=== PATIENT | male | born 1990 | race African-American/Black ===

== ENCOUNTER 2017-08-02 12:47 | Emergency (ER) | payer OTHER ==
[2017-08-02 13:00] VITALS: BP 116/84
[2017-08-02] MEDS ORDERED: NORCO 5/325 PO ONE (13:19)
--- NOTE | 2017-08-02 13:23 | Emergency Department Report ---
ED Lower Extremity HPI - General Chief Complaint: Extremity Injury, Lower Stated Complaint: FX TO LEG Time Seen by Provider: 08/02/17 13:09 Source: patient Mode of arrival: Ambulatory Limitations: No Limitations - History of Present Illness Initial Comments: 27-year-old male past medical history none presents with complaint of left lower leg pain. Patient states that yesterday while at work he had an accident. States he fell while handling heavy material. States that his leg bent awkwardly. Patient states that he felt immediate pain and a snap. Was taken to ED at [facility] where he was evaluated and treated. Patient sustained a distal fibular fracture. Patient states that he came to the ED here today because of pain and states that this occurred out of state and needs orthopedic follow-up in this region. Patient denies any new injuries. Patient has his left lower extremity in a splint and has crutches. Denies any paresthesias. MD Complaint: leg injury Onset/Timin -: days(s) Injury: Leg: Left Type of Injury: inversion Place: work Severity: moderate Severity scale (0 -10): 6 Improves With: NSAID, cold therapy, immobilization Worsens With: weight bearing, movement Context: fall Associated Symptoms: swelling, unable to bear weight - Related Data Allergies Allergy/AdvReac Type Severity Reaction Status Date / Time No Known Allergies Allergy Verified 08/02/17 12:57 ED Review of Systems ROS: Stated complaint: FX TO LEG Other details as noted in HPI Constitutional: denies: chills, fever Eyes: denies: eye pain, eye discharge, vision change ENT: denies: ear pain, throat pain Respiratory: denies: cough, shortness of breath, wheezing Cardiovascular: denies: chest pain, palpitations Endocrine: no symptoms reported Gastrointestinal: denies: abdominal pain, nausea, diarrhea Genitourinary: denies: urgency, dysuria Musculoskeletal: as per HPI. denies: back pain, joint swelling, arthralgia Skin: denies: rash, lesions Neurological: denies: headache, weakness, paresthesias Psychiatric: denies: anxiety, depression Hematological/Lymphatic: denies: easy bleeding, easy bruising ED Past Medical Hx - Past Medical History Previous Medical History?: No - Surgical History Past Surgical History?: No - Social History Smoking Status: Never Smoker Substance Use Type: None ED Physical Exam - General Limitations: No Limitations General appearance: alert, in no apparent distress - Head Head exam: Present: atraumatic, normocephalic - Eye Eye exam: Present: normal appearance, PERRL, EOMI - ENT ENT exam: Present: mucous membranes moist - Neck Neck exam: Present: normal inspection - Respiratory Respiratory exam: Present: normal lung sounds bilaterally. Absent: respiratory distress - Cardiovascular Cardiovascular Exam: Present: regular rate, normal rhythm. Absent: systolic murmur, diastolic murmur, rubs, gallop - GI/Abdominal GI/Abdominal exam: Present: soft, normal bowel sounds - Rectal Rectal exam: Present: deferred - Extremities Exam Extremities exam: Present: normal inspection - Expanded Lower Extremity Exam Left Neuro vascular tendon exam: Present: no vascular compromise (distal capillary refill intact all toes left foot) Gait: Positive: antalgic 1 - Left lower extremity in long posterior splint extending from back of the knee running posteriorly to toes - Back Exam Back exam: Present: normal inspection - Neurological Exam Neurological exam: Present: alert, oriented X3, CN II-XII intact - Psychiatric Psychiatric exam: Present: normal affect, normal mood - Skin Skin exam: Present: warm, dry, intact, normal color. Absent: rash ED Course Vital Signs 08/02/17 12:57 Temperature 98.2 F Pulse Rate 90 Respiratory 16 Rate Blood Pressure 116/84 O2 Sat by Pulse 97 Oximetry ED Lower Extremity MDM - Medical Decision Making A/P: Fibula fracture 1-minimally displaced on x-ray. I discussed this with on-call orthopedic surgeon Dr. Michel. Patient to follow-up in office this week 2-patient has prescription for hydrocodone and Motrin from previous medical facility 3-I referred patient to Dr. Michel's office for follow-up 4-distal capillary refill and blood flow intact on clinical exam left lower extremity. Critical care attestation.: If time is entered above; I have spent that time in minutes in the direct care of this critically ill patient, excluding procedure time. ED Disposition Clinical Impression: Left fibular fracture Qualifiers: Encounter type: initial encounter Fibula location: shaft Fracture type: closed Fracture morphology: other fracture Qualified Code(s): S82.492A - Other fracture of shaft of left fibula, initial encounter for closed fracture Disposition: TO HOME OR SELFCARE Is pt being admited?: No Does the pt Need Aspirin: No Condition: Stable Instructions: Leg Fracture (ED) Referrals: PRIMARY MD ADI [Primary Care Provider] - 3-5 Days ZAY MICHEL MD [Staff Physician] - 3-5 Days [facility] [Provider Group] - 3-5 Days Forms: Accompanied Note Time of Disposition: 14:21 Print Language: GUAMANIAN
--- NOTE | 2017-08-02 15:00 | XRay Report ---
FINAL REPORT PROCEDURE: XR TIBIA FIBULA 2V LT TECHNIQUE: Left tibia and fibula, AP and lateral views HISTORY: lateral leg pain left fibular break, in splint COMPARISON: No prior studies are available for comparison. FINDINGS: AP and lateral views are submitted through splint material.There is minimally displaced fracture through the distal fibula shaft. There is an osseous density measuring 8 millimeters at the tip of the medial malleolus, possibly related to prior fracture or unfused ossification center.. No significant displacement is seen. No prior studies are available for comparison. No bridging callus is identified, although there is limited evaluation of bony details due to splint material. IMPRESSION: Distal fibula fracture, without significant displacement. Prior medial malleolus fracture versus unfused ossification center
== END 2017-08-02 14:32 | disposition home or self-care (01) ==
LOC: EDBD 12:47 → ED 12:47
DX: S82.492A Other fracture of shaft of left fibula, initial encounter for closed fracture (principal); X58.XXXA Exposure to other specified factors, initial encounter; Y93.89 Activity, other specified; Y92.89 Other specified places as the place of occurrence of the external cause; Y99.8 Other external cause status

== ENCOUNTER 2019-10-20 16:26 | Emergency (ER) | payer SELFPAY ==
--- NOTE | 2019-10-20 17:19 | Event Note ---
ED Screening Note ED Screening Note: states that he jumped down from two feet had an inversion injury c./o right foot and ankle pain no numbness or weakness not bearing weight secondary to pain This initial assessment/diagnostic orders/clinical plan/treatment(s) is/are subject to change based on patients health status, clinical progression and re- assessment by fellow clinical providers in the ED. Further treatment and workup at subsequent clinical providers discretion. Patient/guardian urged not to elope from the ED as their condition may be serious if not clinically assessed and managed. Initial orders include: XR right foot and ankle
[2019-10-20 17:20] VITALS: BP 152/85
--- NOTE | 2019-10-20 17:59 | XRay Report ---
Right foot 3 views INDICATION: Right foot pain following injury IMPRESSION: No fracture or subluxation of the right foot identified. Signer Name: J Carlos Mandujano MD Signed: 10/20/2019 5:55 PM Workstation Name: [id number]
--- NOTE | 2019-10-20 17:59 | XRay Report ---
Right ankle 3 views INDICATION: Right ankle pain following injury IMPRESSION: No fracture or subluxation of the right ankle is identified. Moderate swelling along the lateral malleolus noted. Signer Name: J Carlos Mandujano MD Signed: 10/20/2019 5:55 PM Workstation Name: [id number]
[2019-10-20] MEDS ORDERED: HYDROcodone/ACETAMINOPHEN 5-325 MG TAB PO ONE (18:14)
--- NOTE | 2019-10-20 18:27 | Emergency Department Report ---
ED Lower Extremity HPI - General Chief Complaint: Extremity Injury, Lower Stated Complaint: RT LEG INJURY Time Seen by Provider: 10/20/19 17:17 Source: patient Mode of arrival: Wheelchair Limitations: No Limitations - History of Present Illness Initial Comments: This is a 29-year-old male who presents the ED with right ankle pain status post jumping down 2 feet and landing on his foot. Patient states that this happened earlier while he was at work. Patient states that he did not sustain a fall or any other injuries to the head neck or loss of consciousness. MD Complaint: ankle injury - Related Data Previous Rx's Medication Instructions Recorded Last Taken Type HYDROcodone/APAP 5-325 [[place] 1 each PO Q6HR PRN #10 tablet 10/20/19 Unknown Rx 5/325] Ibuprofen [Motrin] 800 mg PO Q8HR #30 tablet 10/20/19 Unknown Rx Allergies Allergy/AdvReac Type Severity Reaction Status Date / Time No Known Allergies Allergy Verified 08/02/17 12:57 ED Review of Systems ROS: Stated complaint: RT LEG INJURY Other details as noted in HPI Comment: All other systems reviewed and negative ED Past Medical Hx - Past Medical History Previous Medical History?: No - Surgical History Past Surgical History?: No - Social History Smoking Status: Never Smoker Substance Use Type: None - Medications Home Medications: Home Medications Medication Instructions Recorded Confirmed Last Taken Type HYDROcodone/APAP 5-325 [[place] 1 each PO Q6HR PRN #10 tablet 10/20/19 Unknown Rx 5/325] Ibuprofen [Motrin] 800 mg PO Q8HR #30 tablet 10/20/19 Unknown Rx ED Physical Exam - General Limitations: No Limitations General appearance: alert, in no apparent distress - Head Head exam: Present: atraumatic, normocephalic - Eye Eye exam: Present: normal appearance - ENT ENT exam: Present: mucous membranes moist - Neck Neck exam: Present: normal inspection - Respiratory Respiratory exam: Present: normal lung sounds bilaterally. Absent: respiratory distress - Cardiovascular Cardiovascular Exam: Present: regular rate, normal rhythm. Absent: systolic murmur, diastolic murmur, rubs, gallop - GI/Abdominal GI/Abdominal exam: Present: soft, normal bowel sounds - Rectal Rectal exam: Present: deferred - Extremities Exam Extremities exam: Present: normal inspection, tenderness (To palpation of the right side of the knee), joint swelling (Minimal joint swelling, nonerythematous), other (Pain with flexion and extension.) - Back Exam Back exam: Present: normal inspection, full ROM. Absent: tenderness - Neurological Exam Neurological exam: Present: alert, oriented X3, normal gait - Psychiatric Psychiatric exam: Present: normal affect, normal mood - Skin Skin exam: Present: warm, dry, intact, normal color. Absent: rash ED Course Vital Signs 10/20/19 17:18 Temperature 97.9 F Pulse Rate 78 Respiratory 18 Rate Blood Pressure 152/85 O2 Sat by Pulse 100 Oximetry ED Lower Extremity MDM - Radiology Data Radiology results: report reviewed, image reviewed Right ankle 3 views INDICATION: Right ankle pain following injury IMPRESSION: No fracture or subluxation of the right ankle is identified. Moderate swelling along the lateral malleolus noted. Signer Name: J Carlos Mandujano MD Signed: 10/20/2019 5:55 PM Workstation Name: [id number] Transcribed By: Dictated By: J Carlos Mandujano MD Electronically Authenticated By: J Carlos Mandujano MD Signed Date/Time: 10/20/19 9608 - Medical Decision Making This 29-year-old male who presents to ED with a right ankle sprain. X-rays show no acute fracture or dislocation. Discussed findings with the patient. Patient put in ankle stirrup and crutches ordered. Discussed with patient rice therapy. Vital signs are normal patient is in no acute distress. Discussed with patient to follow-up with primary care physician. Critical care attestation.: If time is entered above; I have spent that time in minutes in the direct care of this critically ill patient, excluding procedure time. ED Disposition Clinical Impression: Right ankle sprain Disposition: DC-01 TO HOME OR SELFCARE Is pt being admited?: No Does the pt Need Aspirin: No Condition: Stable Instructions: Ankle Exercises (GEN), Ankle Stirrup Splint (ED), Ankle Sprain (ED) Additional Instructions: Make sure to follow up with the primary care physician as discussed. Take all your medications as you've been prescribed. If you have any worsening symptoms or develop new symptoms please return to ED immediately. Prescriptions: Ibuprofen [Motrin] 800 mg PO Q8HR #30 tablet HYDROcodone/APAP 5-325 [[place] 5/325] 1 each PO Q6HR PRN #10 tablet PRN Reason: Pain Referrals: PRIMARY CARE, [Primary Care Provider] - 3-5 Days [facility] [Outside] - 3-5 Days [facility] [Outside] - 3-5 Days [facility] [Provider Group] - 3-5 Days Forms: Work/School Release Form(ED) Time of Disposition: 18:30
== END 2019-10-20 18:49 | disposition home or self-care (01) ==
LOC: ED 16:26
DX: S93.401A Sprain of unspecified ligament of right ankle, initial encounter (principal); Z79.1 Long term (current) use of non-steroidal anti-inflammatories (NSAID); Z79.899 Other long term (current) drug therapy; W17.89XA Other fall from one level to another, initial encounter; Y93.89 Activity, other specified; Y92.89 Other specified places as the place of occurrence of the external cause; Y99.8 Other external cause status